=== PATIENT | male | born 1955 | race Caucasian/White ===

== ENCOUNTER → 2018-01-27 07:11 | Outpatient (CLI) | payer MEDICARE, OTHER | END | disposition home or self-care (01) | LOC: D.CT 07:11 | DX: Z87.891 Personal history of nicotine dependence (principal) ==

== ENCOUNTER 2018-07-22 04:58 | Day surgery (SDC) | payer MEDICARE, OTHER ==
[~2018-07-22] VITALS: Ht 175.3 cm; Wt 105.7 kg
[~2018-07-22 04:58] MED LIST: ASCORBIC ACID500 MG PO; CALCIUM 600 +1 EAC3 PO; CENTRUM MEN'S1 EACH PO; CYMBALTA60 MG PO; FLOMAX0.4 MG PO; FLUTICASONE PRO16 GM NASAL; GEMFIBROZIL600 MG PO; HYDROCODON-ACE1 EA10 PO; LISINOPRIL10 MG PO; LYRICA150 MG PO; MELATONIN10 M1 PO; MSM PO; NORVASC5 MG PO; OMEPRAZOLE40 MG PO; PROBIOTIC250 MG PO; TRAZODONE HCL150 MG PO; VOLTAREN75 MG PO; ZYRTEC10 MG PO
[2018-07-22 05:32] LABS: HEMATOCRIT 35.8 % (42.0-54.0); HEMOGLOBIN 12.2 g/dL (13.5-17.5); MCH 31.2 pg (26.0-34.0); MCHC 34.1 g/dL (31.0-37.0); MCV 91.6 fL (80.0-100.0); MEAN PLATELET VOLUME 9.5 fL (7.4-10.4); RBC 3.91 10x6/uL (4.20-6.10); RDW 12.9 % (11.5-14.5); WBC 5.2 10x3/uL (4.8-10.8)
[2018-07-22 06:50] VITALS: BP 134/76; Ht 175.3 cm; Wt 105.7 kg
--- NOTE | 2018-07-22 08:52 | NUR ---
0840-RECD FROM SURGERY. ALERT, IV PATENT. RESP WITH EASE. DENIES PAIN. CLEAR LIQUIDS GIVEN.
--- NOTE | 2018-07-22 09:09 | NUR ---
0850-DR CORDOVA IN TO REPORT. 0900-UP TO BATHROOM, VOIDS FREELY. FULL LIQUIDS SERVED.
--- NOTE | 2018-07-22 09:26 | OP ---
PATIENT NAME: DWAYNE COUGHLIN MEDICAL RECORD: [id number] :53 LOCATION:.[facility] [place] ADMISSION DATE: SURGEON: NYDIA CORDOVA MD DATE OF OPERATION: 07/22/2018 SURGEON: Nydia Cordova MD APPLICATIONS SPECIALIST: CHERELLE by Omari Bridges CRNA. PROCEDURE: Cystoscopy, transrectal ultrasound and prostate biopsy. DIAGNOSES: Elevated PSA of 6.49 on 04/27/2018. Also bladder outlet obstruction with an IPSS score of 8 and quality of life score of 6, on tamsulosin. FINDINGS: On cystoscopy, obstructive bilateral lateral prostatic lobes. No median lobe. Single ureteral orifices bilaterally. He has a trabeculated bladder with no bladder tumors seen. On transrectal ultrasound, he has a 75 gram prostate with intraprostatic stones. No hypoechoic areas. SPECIMENS: Prostate biopsy cores. BLOOD LOSS: Minimal. CLINICAL HISTORY: This is a 62-year-old male, who was referred by Dr. Clifton for an elevated PSA of 6.49 in 04/27/2018. His PSA in 2015 was 5.1. In 2014, he had a prostate biopsy through the [facility]. The pathology then was benign. In the meantime, he has been on testosterone supplementation for the past 5 to 6 years. His PSA has also risen. He developed obstructive voiding symptoms and he has been on tamsulosin for a few years. He has nocturia times 1 and the urinary stream has improved with tamsulosin. He does have significant side effects and he does not want to be taking tamsulosin forever. We are going to obtain a prostate biopsy. If the biopsy is benign, then he wishes to have the UroLift procedure done. HE IS ALLERGIC TO ASPIRIN, COMPAZINE AND SULFA. On digital rectal examination, there were no palpable nodules. He was given Ancef vocational technical education director to the OR. DESCRIPTION OF PROCEDURE: The patient was given IV sedation. He was then placed in the dorsal lithotomy position and prepped and draped. Cystoscopy was performed using a 17-Indian cystoscope and 30-degree lens. There are no penile urethral strictures. The findings are as outlined above. The bladder was then emptied through the cystoscope sheath and then the scope was removed. We then introduced a transrectal ultrasound probe into the rectum. Prostate size measurements were obtained. He has large spherical prostate, which we measured at 75 grams in size. We took sextant biopsies with at least 3 cores from each sextant. Once all the specimens were obtained, then the procedure was terminated. The patient was awakened and brought back to the preoperative holding area. I will see him in followup next week to review the pathology results with him. TRANSINT:[id number] Voice Confirmation ID: [id number] DOCUMENT ID: [id number] OPERATIVE REPORT [id number] MASTERS,DWAYNE CORDOVA, NYDIA Barnhart MD at 0926 CC: [id number] DICTATION DATE: 07/22/1843 FULL STACK SOFTWARE ENGINEER: 07/22/18 0914 [facility] [address] [place] [address]
--- NOTE | 2018-07-22 09:27 | NUR ---
0920-IV D/C. DISCHARGE INSTRUCTIONS REVIEWED. 0928-D/C VIA WHEELCHAIR WITH SPOUSE.
== END 2018-07-22 09:28 | disposition home or self-care (01) ==
LOC: D.OPS 04:58 → D.PAN 08:00 → D.OPS 08:05 → D.PAN 08:05 → D.OPS 09:20 → D.PAN 09:20 → D.OPS 09:28 → D.PAN 10:00
PROVIDERS: Anesthesiology; ATTEND Urology
DX: N40.1 Benign prostatic hyperplasia with lower urinary tract symptoms (principal); N13.8 Other obstructive and reflux uropathy; R35.1 Nocturia; N32.89 Other specified disorders of bladder; N42.0 Calculus of prostate; Z01.812 Encounter for preprocedural laboratory examination

== ENCOUNTER 2018-09-02 06:50 | Day surgery (SDC) | payer MEDICARE, OTHER ==
[2018-08-31 14:34] LABS: HEMATOCRIT 38.5 % (42.0-54.0); HEMOGLOBIN 13.2 g/dL (13.5-17.5); MCH 31.7 pg (26.0-34.0); MCHC 34.3 g/dL (31.0-37.0); MCV 92.3 fL (80.0-100.0); MEAN PLATELET VOLUME 9.7 fL (7.4-10.4); RBC 4.17 10x6/uL (4.20-6.10); RDW 12.9 % (11.5-14.5); WBC 5.5 10x3/uL (4.8-10.8)
[~2018-09-02] VITALS: Ht 175.3 cm; Wt 110.7 kg
[2018-09-02 07:17] VITALS: BP 128/87; Ht 175.3 cm; Wt 110.7 kg
--- NOTE | 2018-09-02 09:30 | NUR ---
REC'D FROM RR. FAMILY AT BEDSIDE. DRINK BROUGHT TO PT.
--- NOTE | 2018-09-02 10:00 | NUR ---
SAVANA POND SERVED TO PT. AMBULATED TO BATHROOM AND VOIDED WITHOUT DIFFICULTY. FAMILY AT BEDSIDE.
--- NOTE | 2018-09-02 10:30 | NUR ---
TOLERATED FL DIET. VOIDING WITHOUT DIFFICULTY. FAMILY AT BEDSIDE.
--- NOTE | 2018-09-02 10:45 | NUR ---
IV DC'D WITH CATHETER INTACT. WRITTEN AND VERBAL DC INST. GIVEN TO PT. VERBALIZED UNDERSTANDING.
--- NOTE | 2018-09-02 11:00 | NUR ---
DC'D HOME WITH FAMILY VIA PRIVATE VEHICLE. TAKEN TO VEHICLE VIA WC. STABLE ZT TIME OF DC.
--- NOTE | 2018-09-03 10:08 | OP ---
PATIENT NAME: DWAYNE COUGHLIN MEDICAL RECORD: [id number] :53 LOCATION:[facility] ADMISSION DATE: SURGEON: KEITH CORDOVA MD DATE OF OPERATION: 09/02/2018 SURGEON: Keith Cordova MD ANESTHESIA: TIVA by Jeff Corona CRNA. DIAGNOSES: Obstructive BPH with PSA 6.49, prostate size 75 grams. IPSS score is 8 and quality of life score is 6, on tamsulosin. PROCEDURE: UroLift times 4 implants. FINDINGS: Bilateral lateral lobe hyperplasia. BLOOD LOSS: Minimal. CLINICAL HISTORY: This is a 62-year-old male, who has an elevated PSA of 6.49. On transrectal ultrasound, he had a 75 gram prostate. The prostate biopsy results were benign. He has obstructive voiding symptoms and he has been on tamsulosin for many years. The tamsulosin is giving him problems with ejaculation as well as with short-term memory loss. He comes now to have the UroLift procedure done. He is also on testosterone supplementation, which will promote prostate growth. IPSS and quality of life scores are as outlined above. HE IS ALLERGIC TO ASPIRIN, COMPAZINE, AND SULFA. He was given Ancef garment alteration examiner to the OR. DESCRIPTION OF PROCEDURE: The patient was given IV sedation. He was then placed into the lithotomy position and prepped and draped. The UroLift scope was introduced. The findings are as outlined above. The first 2 units were placed, one on each side at the level of the bladder neck. We went 1.5 cm distal to the bladder neck and at the anterior lateral sulcus of the lateral lobe we placed the units. The 2 remaining units were placed at the level of the verumontanum, again in the anterior lateral sulcus. This was with 1 unit on each side. A total of [address] He had a nice open anterior urethral channel at the end of the procedure. The bladder was left partly full, so that he could have a voiding trial today. I will see the patient in followup in 1 months' time. TRANSINT:[id number] Voice Confirmation ID: [id number] DOCUMENT ID: [id number] KEITH CORDOVA MD at 1008 CC: [id number] DICTATION DATE: 09/02/18934 JEWEL SUPERVISOR: 09/02/18 1251 [facility] 09/02/18 [facility] [address] [place] [address]
== END 2018-09-02 11:00 | disposition home or self-care (01) ==
LOC: D.OPS 06:50 → D.PAN 07:30 → D.OPS 09:00
PROVIDERS: Anesthesiology; ATTEND Urology
DX: N40.1 Benign prostatic hyperplasia with lower urinary tract symptoms (principal); N13.8 Other obstructive and reflux uropathy; Z79.899 Other long term (current) drug therapy; Z79.890 Hormone replacement therapy; Z88.6 Allergy status to analgesic agent; Z88.2 Allergy status to sulfonamides; Z01.812 Encounter for preprocedural laboratory examination

== ENCOUNTER 2019-03-10 05:13 | Day surgery (SDC) | payer MEDICARE, OTHER ==
[2019-03-08 12:26] LABS: HEMOGLOBIN 15.7 g/dL (13.5-17.5); MCH 31.6 pg (26.0-34.0); MCHC 34.1 g/dL (31.0-37.0); MCV 92.6 fL (80.0-100.0); RBC 4.97 10x6/uL (4.20-6.10); RDW 12.3 % (11.5-14.5); WBC 4.8 10x3/uL (4.8-10.8)
[2019-03-08 12:32] LABS: ANION GAP 14.1 mmol/L (8-16); CALCIUM 9.4 mg/dL (8.5-10.1); CARBON DIOXIDE 27.5 mmol/L (21.0-32.0); CREATININE - SERUM 1.3 mg/dL (0.6-1.3); POTASSIUM - SERUM 4.6 mmol/L (3.5-5.1)
[~2019-03-10] VITALS: Ht 175.3 cm; Wt 108.9 kg
[2019-03-10 06:07] VITALS: BP 134/73; Ht 175.3 cm; Wt 108.9 kg
[2019-03-10] MEDS ORDERED: HYDROCODON-ACE1 EA10 PO (08:33)
--- NOTE | 2019-03-10 11:00 | OP ---
PATIENT NAME: DWAYNE COUGHLIN MEDICAL RECORD: [id number] :53 LOCATION:[facility] ADMISSION DATE: SURGEON: RUTH FERMIN MD DATE OF OPERATION: 03/10/2019 PREOPERATIVE DIAGNOSIS: Medial meniscus tear of the right knee. POSTOPERATIVE DIAGNOSIS: Medial meniscus tear of the right knee. PROCEDURE: Arthroscopic partial medial meniscectomy. SURGEON: Ruth Fermin MD ANESTHESIA: General. INTRAOPERATIVE COMPLICATIONS: None. 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 Otherwise, the knee was in overall good shape. The patient had a split tear of the medial meniscus just adjacent to the root. OPERATIVE SUMMARY IN DETAIL: After obtaining the appropriate preoperative orthopedic surgery consent as well as anesthetic consultation, evaluation, and clearance, the patient was brought to the operating room and placed on the operating table in the supine position. After adequate general laryngeal mask airway was administered, a tourniquet was placed about the proximal aspect of the right lower extremity. The right lower extremity was prepped and draped in routine sterile fashion. The leg was elevated, exsanguinated, and the tourniquet was inflated to 350 mmHg. Routine inferolateral portal was established, followed by superomedial portal and inferomedial portal. Diagnostic arthroscopy did show the patient to have the above-mentioned findings. Combination of meniscotome as well as a full-radius resector were utilized to debride the meniscus back to stable meniscal elements. The residual of the exam was as above. The knee was insufflated with 30 cc of 0.25% Marcaine with epinephrine and 80 mg of Depo-Medrol. Arthroscopy portals were closed in routine interrupted fashion using 4-0 Prolene. Sterile dressings were applied. The patient was awakened and taken to recovery room in stable condition. All final needle and sponge counts were correct. TRANSINT:[id number] Voice Confirmation ID: [id number] DOCUMENT ID: [id number] RUTH FERMIN MD at 1100 CC: [id number] DICTATION DATE: 03/10/19 0835 TERRITORY SUPERVISOR: 03/10/19 [id number] [place] [address]
== END 2019-03-10 10:05 | disposition home or self-care (01) ==
LOC: D.OPS 05:13 → D.PAN 08:30 → D.OPS 10:05
PROVIDERS: Anesthesiology; ATTEND Orthopaedic Surgery
DX: S83.241A Other tear of medial meniscus, current injury, right knee, initial encounter (principal); I10 Essential (primary) hypertension